=== PATIENT | female | born 1990 ===

== ENCOUNTER → 2023-08-12 | Outpatient (CLI) | payer OTHER ==
[2023-08-15 16:00] LABS: APTIMA MEDIA TYPE Urine; C. TRACHOMATIS BY TMA Negative (Negative); N. GONORRHOEAE BY TMA Negative (Negative); SPECIMEN SOURCE Urine
== END ==
LOC: LAB 15:07 → LAB SHORT 15:07
PROVIDERS: Registered Nurse Community Health
DX: Z34.91 Encounter for supervision of normal pregnancy, unspecified, first trimester (principal)
CPT/HCPCS: 87491; 87591

== ENCOUNTER → 2023-11-25 | Outpatient (CLI) | payer OTHER ==
[2023-11-25 22:23] LABS: Percent Saturation 11.9 % (15.0-50.0)
== END | disposition home or self-care (01) ==
LOC: LAB SHORT 18:54
PROVIDERS: Registered Nurse Community Health
DX: Z34.92 Encounter for supervision of normal pregnancy, unspecified, second trimester (principal)
CPT/HCPCS: 82728; 83540; 83550

== ENCOUNTER → 2023-12-12 | Outpatient (CLI) | payer OTHER ==
[2023-12-12 14:49] LABS: Hematocrit 39.5 % (33.0-51.0); Hemoglobin 13.3 g/dL (11.5-16.0)
== END | disposition home or self-care (01) ==
LOC: LAB SHORT 12:53 → LAB 12:53
PROVIDERS: Registered Nurse Community Health
DX: Z34.92 Encounter for supervision of normal pregnancy, unspecified, second trimester (principal)
CPT/HCPCS: 82950; 85014; 85018

== ENCOUNTER → 2024-02-12 | Outpatient (CLI) | payer OTHER | LOC: LAB SHORT 16:30 → LAB 16:30 → LAB SHORT 02-13 07:44 | DX: Z34.93 Encounter for supervision of normal pregnancy, unspecified, third trimester (principal) | CPT/HCPCS: 87081; 87150 ==

== ENCOUNTER 2024-03-12 19:29 | Inpatient (IN) | payer OTHER ==
[~2024-03-12] VITALS: Ht 170.2 cm; Wt 86.8 kg
[2024-03-12 19:48] VITALS: BP 122/63
[2024-03-12] MEDS ORDERED: Carboprost Tromethamine 250 MCG/ML 1ML Amp IM PRN (20:00)
[2024-03-12] MEDS ORDERED: Tranexamic Acid 1,000 MG in NS 100 ML IV SCH (20:00)
[2024-03-12] MEDS ORDERED: Lactated Ringer's 1,000 ML IV PRN ×4 (20:00→20:15)
[2024-03-12] MEDS ORDERED: Misoprostol 200 MCG Tab BC PRN (20:00)
[2024-03-12] MEDS ORDERED: OXYTOCIN/RINGER'S LACTATE 500 ML IV PRN (20:00)
[2024-03-12] MEDS ORDERED: Misoprostol 25 MCG Tab VAG PRN (20:00)
[2024-03-12] MEDS ORDERED: Acetaminophen 500 MG Tab PO PRN (20:00)
[2024-03-12] MEDS ORDERED: Methylergonovine Maleate 0.2MG / ML 1ML Amp IM PRN (20:00)
[2024-03-12] MEDS ORDERED: Misoprostol 200 MCG Tab PR PRN (20:00)
[2024-03-12] MEDS ORDERED: OXYTOCIN/RINGER'S LACTATE 500 ML IV SCH (20:00)
[2024-03-12] MEDS ORDERED: Ondansetron HCl 2 MG / ML 2ML Vial IV PRN (20:00)
[2024-03-12] MEDS ORDERED: Oxytocin 10 Unit / ML Vial IM PRN (20:00)
[2024-03-12] MEDS ORDERED: Calcium Carbonate 500 MG Tab Chew PO PRN (20:05)
[2024-03-12] MEDS ORDERED: FentaNYL 2mcg/ml-Bup 0.1% Epd 250 ML EPI PRN (20:15)
[2024-03-12] MEDS ORDERED: ePHEDrine Sulfate 50 MG/ML 1ML Injection XX PRN (20:15)
[2024-03-12] MEDS ORDERED: FentaNYL Citrate 50 MCG/ML 2 ML Injection IV ONE (20:20)
[2024-03-12 20:50] LABS: BASOPHILS ABSOLUTE AUTO 0.04 K/mm3 (0.00-0.23); BASOPHILS PERCENT AUTO 0 % (0-2); EOSINOPHILS ABSOLUTE AUTO 0.08 K/mm3 (0.00-0.68); EOSINOPHILS PERCENT AUTO 1 % (0-6); Hematocrit 36.4 % (33.0-51.0); Hemoglobin 12.5 g/dL (11.5-16.0); IMMATURE GRAN ABSOLUTE AUTO 0.07 K/mm3 (0.00-0.10); IMMATURE GRAN PERCENT AUTO 1 % (0-1); LYMPHOCYTES ABSOLUTE AUTO 2.99 K/mm3 (0.84-5.20); LYMPHOCYTES PERCENT AUTO 24 % (21-46); MONOCYTES ABSOLUTE AUTO 0.82 K/mm3 (0.16-1.47); MONOCYTES PERCENT AUTO 7 % (4-13); Mean Corpuscular HGB 30.1 pg (26.0-34.0); Mean Corpuscular HGB Conc 34.3 g/dL (31.5-36.5); Mean Corpuscular Volume 88 fL (80-100); Mean Platelet Volume 12.5 fL (9.1-12.4); NEUTROPHILS ABSOLUTE AUTO 8.55 K/mm3 (1.96-9.15); NEUTROPHILS PERCENT AUTO 68 % (41-73); Platelet Count 225 K/mm3 (150-400); RDW Coefficient Variation 13.6 % (11.7-14.2); RDW Standard Deviation 43.4 fL (35.1-46.3); Red Blood Cell Count 4.15 M/mm3 (3.80-5.20); White Blood Cell Count 12.55 K/mm3 (4.00-11.30)
[2024-03-12 21:11] LABS: Albumin, Blood 2.6 g/dL (3.4-5.0); Albumin/Globulin Ratio 0.6 (0.8-1.8); Bilirubin, Total 0.2 mg/dL (0.1-1.0); Bun/Creatinine Ratio 20.4 (12.0-20.0); Calcium, Blood 9.3 mg/dL (8.5-10.1); Creatinine, Blood 0.59 mg/dL (0.40-1.00); Globulin, Blood 4.2 g/dL (2.2-4.0); Potassium, Blood 3.8 mmol/L (3.5-5.5); Total Protein, Blood 6.8 g/dL (6.4-8.2)
[2024-03-12] MEDS ORDERED: LABE100 PO (21:28)
[2024-03-12] MEDS ORDERED: PRENATAL TABLE1 EAC2 PO (21:29)
[2024-03-12 22:21] VITALS: BP 113/70
[2024-03-12 22:50] VITALS: BP 123/64
[2024-03-12 23:19] VITALS: BP 119/64
[2024-03-12 23:50] VITALS: BP 115/66
[2024-03-13] VITALS (22 sets, daily range): BP systolic 103–159; BP diastolic 53–104
[2024-03-13] MEDS ORDERED: FentaNYL Citrate 50 MCG/ML 2 ML Injection IV PRN (05:50)
[2024-03-13] MEDS ORDERED: Ondansetron HCl 2 MG / ML 2ML Vial IV PRN (11:42)
[2024-03-14] VITALS (14 sets, daily range): BP systolic 107–130; BP diastolic 54–73
[2024-03-14] MEDS ORDERED: Azithromycin 500 MG in NS 250 ML IV SCH ×2 (00:25→00:35)
[2024-03-14] MEDS ORDERED: CeFAZolin Sodium 2,000 MG in NS 100 ML IV SCH (00:25)
[2024-03-14] MEDS ORDERED: Metoclopramide HCl 5MG / ML 2ML Vial IV PRN (00:30)
[2024-03-14] MEDS ORDERED: Citric Acid/Sodium Citrate 30 ML BTL PO PRN (00:30)
[2024-03-14] MEDS ORDERED: Methylergonovine Maleate 0.2MG / ML 1ML Amp ONE (01:32)
[2024-03-14] MEDS ORDERED: Tranexamic Acid 100 ML IV ONE (01:34)
--- NOTE | 2024-03-14 01:34 | NUR ---
03/14/24 0134 [place] [facility] SPINAL AND SOLIS CATH DONE IN OR. BABY BOY BORN AT 0126 CORD BLOOD SENT WITH MARIBELL GODOY RN CORD SEGMENT SENT WITH TATI LEVI
[2024-03-14 01:39] LABS: PO2 Cord - Arterial 21.3 mmHg (16-20); pH Cord - Arterial 7.33 (7.28-7.35)
[2024-03-14 01:42] LABS: PCO2 Cord - Venous 41.7 mmHg (40-50); PO2 Cord - Venous 23.6 mmHg (28-32); pH Umbilical Cord - Venous 7.36 (7.26-7.35)
[2024-03-14] MEDS ORDERED: Oxytocin 10 Unit / ML Vial ONE ×2 (01:47→01:57)
[2024-03-14] MEDS ORDERED: Phenylephrine HCl 100 MCG/ML-NS 10MLSYR (1MG/10ML) ONE (01:47)
[2024-03-14] MEDS ORDERED: Ondansetron HCl 2 MG / ML 2ML Vial ONE (01:47)
[2024-03-14] MEDS ORDERED: FentaNYL Citrate 50 MCG/ML 2 ML Injection IV PRN ×2 (01:55)
[2024-03-14] MEDS ORDERED: Ondansetron HCl 2 MG / ML 2ML Vial IV PRN ×2 (01:55→02:20)
[2024-03-14] MEDS ORDERED: HYDROmorphone HCl/Pf 1MG SYR IV PRN ×2 (01:55)
[2024-03-14] MEDS ORDERED: Ketorolac Tromethamine 30mg Vial ONE (02:05)
[2024-03-14] MEDS ORDERED: Misoprostol 200 MCG Tab PR PRN (02:15)
[2024-03-14] MEDS ORDERED: DiphenhydrAMINE HCL 25 MG Cap PO PRN (02:15)
[2024-03-14] MEDS ORDERED: Acetaminophen 500 MG Tab PO PRN (02:15)
[2024-03-14] MEDS ORDERED: Carboprost Tromethamine 250 MCG/ML 1ML Amp IM PRN (02:15)
[2024-03-14] MEDS ORDERED: Simethicone 80 MG Chew PO PRN (02:20)
[2024-03-14] MEDS ORDERED: Magnesium Hydroxide Conc 10 ML UDC PO PRN (02:20)
[2024-03-14] MEDS ORDERED: Methylergonovine Maleate 0.2MG / ML 1ML Amp IM PRN (02:20)
[2024-03-14] MEDS ORDERED: Promethazine HCl 25 MG Tab PO PRN (02:25)
[2024-03-14] MEDS ORDERED: OxyCODONE HCL 5 MG TAB PO PRN (02:25)
[2024-03-14] MEDS ORDERED: Methylergonovine Maleate 0.2 MG Tab PO PRN (02:25)
[2024-03-14] MEDS ORDERED: OxyCODONE 5 mg/Acetamin 325 mg TABLET PO PRN (02:25)
[2024-03-14] MEDS ORDERED: Ketorolac Tromethamine 30mg Vial IV SCH (03:00)
[2024-03-14] MEDS ORDERED: Misoprostol 200 MCG Tab BC ONE (03:05)
[2024-03-14] MEDS ORDERED: Ibuprofen 400 MG Tab PO SCH (08:00)
[2024-03-14] MEDS ORDERED: Docusate Sodium 100 MG Cap PO SCH (09:00)
[2024-03-14] MEDS ORDERED: Prenatal Vit/FE Fumarate/FA 1 Tab PO SCH (09:00)
[2024-03-14 09:36] LABS: BASOPHILS ABSOLUTE AUTO 0.07 K/mm3 (0.00-0.23); BASOPHILS PERCENT AUTO 0 % (0-2); EOSINOPHILS ABSOLUTE AUTO 0.02 K/mm3 (0.00-0.68); EOSINOPHILS PERCENT AUTO 0 % (0-6); Hemoglobin 10.6 g/dL (11.5-16.0); IMMATURE GRAN ABSOLUTE AUTO 0.14 K/mm3 (0.00-0.10); IMMATURE GRAN PERCENT AUTO 1 % (0-1); LYMPHOCYTES ABSOLUTE AUTO 2.84 K/mm3 (0.84-5.20); LYMPHOCYTES PERCENT AUTO 16 % (21-46); MONOCYTES ABSOLUTE AUTO 0.75 K/mm3 (0.16-1.47); MONOCYTES PERCENT AUTO 4 % (4-13); Mean Corpuscular HGB 29.8 pg (26.0-34.0); Mean Corpuscular HGB Conc 34.2 g/dL (31.5-36.5); Mean Corpuscular Volume 87 fL (80-100); Mean Platelet Volume 12.5 fL (9.1-12.4); NEUTROPHILS ABSOLUTE AUTO 13.45 K/mm3 (1.96-9.15); NEUTROPHILS PERCENT AUTO 78 % (41-73); Platelet Count 194 K/mm3 (150-400); RDW Coefficient Variation 13.6 % (11.7-14.2); RDW Standard Deviation 42.4 fL (35.1-46.3); Red Blood Cell Count 3.56 M/mm3 (3.80-5.20); White Blood Cell Count 17.27 K/mm3 (4.00-11.30)
--- NOTE | 2024-03-14 15:11 | NUR ---
assumed care from pretty angel rn
--- NOTE | 2024-03-14 16:15 | NUR ---
helped to br, abelino care, and taught on abd binder and abelino care
--- NOTE | 2024-03-14 23:56 | NUR ---
pt was able to stand and ambulate to the bathroom with min. assist. Pt was painful at surgical site but only required a stand by assist with help getting in and out of bed.
[2024-03-15 07:48] VITALS: BP 118/62
[2024-03-15 10:57] VITALS: BP 111/66
[2024-03-15] MEDS ORDERED: OxyCODONE 5 mg/Acetamin 325 mg TABLET PO PRN (14:45)
[2024-03-15 15:45] VITALS: BP 122/58
[2024-03-15] MEDS ORDERED: Lanolin Cream TOP PRN (18:40)
[2024-03-15 19:30] VITALS: BP 117/59
[2024-03-16 00:29] VITALS: BP 121/70
[2024-03-16 03:40] VITALS: BP 122/68
[2024-03-16 08:12] VITALS: BP 128/76
[2024-03-16] MEDS ORDERED: IBU800 M1 PO (11:11)
[2024-03-16] MEDS ORDERED: Percocet 5-3251 EACH PO (11:12)
[2024-03-16 12:49] VITALS: BP 132/77
--- NOTE | 2024-03-16 14:05 | NUR ---
DISCHARGE W/S.O. AND BABY IN [facility] DENIED QUESTIONS RETURNING TOMORROW FOR PPFU 1300
== END 2024-03-16 14:05 | disposition home or self-care (01) | DRG 788 ==
LOC: OBS 19:29 → BC 19:33 → OBS 19:41 → BC 19:45
PROVIDERS: Family Medicine; ADMIT Registered Nurse Community Health
PROC: 10D00Z1 Extraction of Products of Conception, Low, Open Approach (ICD-10-PCS; principal; 2024-03-14)
PROC: 0U7C7ZZ Dilation of Cervix, Via Natural or Artificial Opening (ICD-10-PCS; 2024-03-14)
PROC: 10907ZC Drainage of Amniotic Fluid, Therapeutic from Products of Conception, Via Natural or Artificial Opening (ICD-10-PCS; 2024-03-14)
DX: O13.4 Gestational [pregnancy-induced] hypertension without significant proteinuria, complicating childbirth (principal); Z37.0 Single live birth; O48.0 Post-term pregnancy; O76 Abnormality in fetal heart rate and rhythm complicating labor and delivery; Z3A.40 40 weeks gestation of pregnancy
CPT/HCPCS: 36415; 59200; 80053; 82803; 85025; 86850; 86900; 86901; 86923; A9270; J0456; J0690; J1885; J2210; J2371; J2405; J2590; J7050; J7120